=== PATIENT | male | born 1955 | race Caucasian/White ===

== ENCOUNTER → 2022-08-19 11:45 | Outpatient (BNVA) | payer MEDICARE, SELFPAY | PROVIDERS: Family Provider Family Medicine; PCP Family Medicine; Visit Provider Family Medicine | DX: Z00.00 Encounter for general adult medical examination without abnormal findings (principal); I10 Essential (primary) hypertension; E78.5 Hyperlipidemia, unspecified | CPT/HCPCS: 80053; 80061 ==

== ENCOUNTER → 2023-09-02 08:50 | Outpatient (BNVA) | payer MEDICARE, SELFPAY | PROVIDERS: Family Provider Family Medicine; PCP Family Medicine; Visit Provider Family Medicine | DX: Z00.00 Encounter for general adult medical examination without abnormal findings (principal); Z13.6 Encounter for screening for cardiovascular disorders | CPT/HCPCS: 80053; 80061 ==

== ENCOUNTER → 2024-08-29 11:50 | Outpatient (BNVA) | payer MEDICARE, SELFPAY | PROVIDERS: Family Provider Family Medicine; PCP Family Medicine; Visit Provider Family Medicine | DX: Z00.00 Encounter for general adult medical examination without abnormal findings (principal); I10 Essential (primary) hypertension; M19.90 Unspecified osteoarthritis, unspecified site; E78.5 Hyperlipidemia, unspecified | CPT/HCPCS: 80053; 80061 ==

== ENCOUNTER 2024-10-17 12:54 | Outpatient (CLI) | payer MEDICARE, SELFPAY ==
--- NOTE | 2024-10-17 12:59 | XR_ITS ---
WS: [id number] XR cervical spine 3V* [id number] REASON FOR EXAM: M19.90 - Unspecified osteoarthritis, unspecified site FINDINGS: Slight reversal of the normal lordosis of the cervical spine. Anterior plate and screw fixation with interbody fusion device C5-C6. Surgical appliances are in prop er position and alignment and unchanged compared to 04/13/2017. No focal vertebral body abnormality. Mild narrowing of the C4-C5 disc space with mild anterior osteophytosis. Similar findings at C6-C7. XR/XR cervical spine 3V* [id number] IMPRESSION: Anterior cervical fusion and degenerative spondylosis as above. Examination is essentially unchanged compared to 04/13/2017.
== END 2024-10-17 12:55 | disposition home or self-care (01) ==
LOC: RAD 12:54
PROVIDERS: Family Provider Family Medicine; PCP Family Medicine; Visit Provider Family Medicine
DX: M19.09 Primary osteoarthritis, other specified site (principal); Z98.1 Arthrodesis status; M48.02 Spinal stenosis, cervical region; M25.78 Osteophyte, vertebrae; M47.892 Other spondylosis, cervical region
CPT/HCPCS: 72040

== ENCOUNTER 2024-10-19 10:39 | Outpatient (RCR) | payer MEDICARE, SELFPAY | END 2024-11-04 23:59 | disposition home or self-care (01) | LOC: SPT 10:39 | PROVIDERS: Family Provider Family Medicine; PCP Family Medicine; Visit Provider Family Medicine | DX: M54.2 Cervicalgia (principal) | CPT/HCPCS: 97161 ==

== ENCOUNTER → 2025-10-03 12:14 | Outpatient (BNVA) | payer MEDICARE, SELFPAY | PROVIDERS: Family Provider Family Medicine; PCP Family Medicine | DX: R52 Pain, unspecified (principal) | CPT/HCPCS: 87400; 87426 ==